=== PATIENT | female | born 1985 | race Caucasian/White ===

== ENCOUNTER → 2021-01-25 | Outpatient (REF) | payer OTHER | LOC: M SFHCLERA 17:24 | PROVIDERS: ATTEND Nurse Practitioner Family | DX: L91.8 Other hypertrophic disorders of the skin (principal) ==

== ENCOUNTER → 2023-10-23 | Outpatient (REF) | payer OTHER | LOC: M SFHCWAGY 12:12 | PROVIDERS: ATTEND Physician Assistant | DX: Z01.419 Encounter for gynecological examination (general) (routine) without abnormal findings (principal); Z12.31 Encounter for screening mammogram for malignant neoplasm of breast ==

== ENCOUNTER → 2023-12-21 | Outpatient (CLI) | payer OTHER ==
[2023-12-21 15:19] LABS: HCG, SERUM QUALITATIVE NEGATIVE (NEGATIVE)
== END ==
LOC: M RAD 12:27
PROVIDERS: ATTEND Physician Assistant
DX: N93.9 Abnormal uterine and vaginal bleeding, unspecified (principal)

== ENCOUNTER → 2025-06-02 | Outpatient (CLI) | payer OTHER | LOC: M RAD 15:30 | DX: R59.0 Localized enlarged lymph nodes (principal) ==

== ENCOUNTER → 2025-06-03 | Outpatient (REF) | payer OTHER ==
[2025-06-06 14:12] LABS: HPV APTIMA Not Detected (Not Detected)
== END ==
LOC: M SFHCWAGY 11:06
PROVIDERS: ATTEND Obstetrics & Gynecology
DX: Z12.4 Encounter for screening for malignant neoplasm of cervix (principal); R87.610 Atypical squamous cells of undetermined significance on cytologic smear of cervix (ASC-US)